=== PATIENT | female | born 1970 | race Caucasian/White ===

== ENCOUNTER → 2018-03-02 | Outpatient (CLI) | payer BC | LOC: OLS 15:45 → LAB SHORT 15:45 | PROVIDERS: Nurse Practitioner Women's Health | DX: Z12.4 Encounter for screening for malignant neoplasm of cervix (principal); Z91.89 Other specified personal risk factors, not elsewhere classified | CPT/HCPCS: 87624; G0123 ==

== ENCOUNTER → 2019-03-13 | Outpatient (CLI) | payer BC ==
[2019-03-14 15:06] LABS: HPV 16 Negative (Negative); HPV 18 Negative (Negative); HPV OTHER HR TYPES Negative (Negative)
== END | disposition home or self-care (01) ==
LOC: LAB 12:58 → LAB SHORT 12:58
PROVIDERS: Nurse Practitioner Women's Health
DX: Z12.4 Encounter for screening for malignant neoplasm of cervix (principal); Z91.89 Other specified personal risk factors, not elsewhere classified
CPT/HCPCS: 87624; G0123

== ENCOUNTER 2019-10-04 10:52 | Day surgery (SDC) | payer BC ==
[~2019-10-04] VITALS: Ht 170.2 cm; Wt 97.0 kg
[~2019-10-04 10:52] MED LIST: ALPR1 PO; CLON.5 PO; IBUP800 PO; LISI20 PO; METO25 PO; Nortriptyline H50 MG PO
--- NOTE | 2019-10-04 11:58 | NUR ---
Ambulatory in Day Surgery. Surgical site prepped with 2% Chlorhexidine cloth wipe. History, Chart, Medications and Allergies reviewed before start of procedure.Patient up to Ambulate independently. Gait steady. Lungs clear T/O to Auscultation. Patient confirms NPO status and agrees with scheduled surgery. Pre-Op teaching done. Pt verbalizes understanding. Patient States Post-Procedure ride home has been arranged. Patient reports completing Chlorhexadine shower X2 prior to admission to hospital.
--- NOTE | 2019-10-04 13:42 | NUR ---
PT TO STEP. CO/ PAIN 7-8 TI RIGHT ARM UP TO ELBOW. DRESSING D/I. BRISK CAPILLARY REFILL. DENIES NUMBNESS OR TINGLING TO FINGERS.
--- NOTE | 2019-10-04 14:13 | NUR ---
PT STATES PAIN IMPROVING. NO MOSTLY IN THUMB AND RESOLVED FROM ELBOW. WRITTEN AND VERBAL D/C INSTUCTIONS GIVEN TO PT AND WITH STATED UNDERSTANDING.
--- NOTE | 2019-10-04 14:17 | NUR ---
REPORT TO JAM MEHTA RN.
--- NOTE | 2019-10-04 14:18 | NUR ---
ASSUMED CARE OF PT.
--- NOTE | 2019-10-04 14:48 | NUR ---
Patient up to Ambulate independently. Gait steady. Discharge instructions reviewed with patient. Patient verbalizes understanding. Copy given to patient to take home. Discharged via wheelchair to private car for ride home WITH SPOUSE. PT GIVEN ICE PACK AND SLING FOR COMFORT.
--- NOTE | 2019-10-05 08:44 | NUR ---
10/05/19 0844 Janel Hernández VERIFICATIONS: EDIT CHART.
== END 2019-10-05 22:54 | disposition home or self-care (01) ==
LOC: ORSCMMR 10:52 → ORD 12:30 → ORSCMMR 10-05 22:54
PROVIDERS: Orthopaedic Surgery
PROC: 0PSN34Z Reposition Left Carpal with Internal Fixation Device, Percutaneous Approach (ICD-10-PCS; principal; 2019-10-04 12:30)
DX: S62.015A Nondisplaced fracture of distal pole of navicular [scaphoid] bone of left wrist, initial encounter for closed fracture (principal); I10 Essential (primary) hypertension; Z79.899 Other long term (current) drug therapy
CPT/HCPCS: C1713; C1769; J0690; J1100; J2250; J2370; J2405; J2704; J3010; J7120

== ENCOUNTER → 2019-12-29 | Outpatient (CLI) | payer BC | END | disposition home or self-care (01) | LOC: LAB SHORT 14:33 → LAB EV 14:33 | DX: R07.0 Pain in throat (principal) | CPT/HCPCS: 87081 ==

== ENCOUNTER → 2021-10-09 | Outpatient (CLI) | payer BC | END | disposition home or self-care (01) | LOC: LAB 13:57 → LAB SHORT 13:57 | DX: N39.0 Urinary tract infection, site not specified (principal) | CPT/HCPCS: 87077; 87086; 87186 ==

== ENCOUNTER → 2022-04-04 | Outpatient (CLI) | payer OTHER | END | disposition home or self-care (01) | LOC: LAB SHORT 12:26 → LAB 12:26 | DX: N39.0 Urinary tract infection, site not specified (principal) | CPT/HCPCS: 87077; 87086; 87186 ==

== ENCOUNTER → 2025-08-01 | Outpatient (CLI) | payer OTHER ==
[~2025-08-01] MED LIST changes: +AMLO5; +AZELASTINE137 MCG/01; +BUSP10; +ESCI20; +FLUT.05NI; +OMEP20ER; +RYBELSUS14 MG; +XYZOL; +ZOCOR20 MG
== END ==
LOC: LAB 08:29 → LAB SHORT 08:29
DX: N39.0 Urinary tract infection, site not specified (principal)
CPT/HCPCS: 87086